=== PATIENT | female | born 1945 | race Caucasian/White ===

== ENCOUNTER 2017-03-29 15:58 | Emergency (ER) | payer MEDICARE, OTHER ==
[~2017-03-29] VITALS: Ht 167.6 cm; Wt 107.4 kg
[~2017-03-29 15:58] MED LIST: MEDDOSEPAK OR; PERCOCET 5/325M1 TAB PO; SILVADENE1 % EX
[2017-03-29] MEDS ORDERED: NAPROSYN500 MG PO (18:07)
[2017-03-29 18:10] VITALS: BP 139/74
== END 2017-03-29 18:10 | disposition home or self-care (01) ==
LOC: ED 15:58
DX: M79.604 Pain in right leg (principal); M79.651 Pain in right thigh; M54.5 Low back pain

== ENCOUNTER 2018-05-04 12:54 | Emergency (ER) | payer MEDICARE, OTHER ==
[~2018-05-04] VITALS: Ht 167.6 cm; Wt 100.0 kg
[~2018-05-04 12:54] MED LIST changes: +NAPROSYN500 MG PO
[2018-05-04] MEDS ORDERED: ACYCLOVIR400 MG PO (14:07)
[2018-05-04] MEDS ORDERED: TRAMADOL HYDROC50 MG PO (14:07)
[2018-05-04 14:21] VITALS: BP 158/89
== END 2018-05-04 14:33 | disposition home or self-care (01) ==
LOC: ED 12:54
DX: B02.9 Zoster without complications (principal); R10.32 Left lower quadrant pain; L29.9 Pruritus, unspecified

== ENCOUNTER → 2018-05-15 | Outpatient (REF) | payer MEDICARE, OTHER ==
[~2018-05-15] MED LIST changes: +ACYCLOVIR400 MG PO; +TRAMADOL HYDROC50 MG PO
[2018-05-15 10:47] LABS: HEMATOCRIT 46.4 % (37.0-47.0); HEMOGLOBIN 14.9 g/dl (12.0-16.0); MEAN CELL VOLUME 91.7 fL CALC (80.0-100.0); MEAN CORPUSCULAR HGB 29.4 pG CALC (26.0-32.0); MEAN CORPUSCULAR HGB CONC 32.1 g/L CALC (32.0-36.0); RED BLOOD COUNT 5.06 mill/uL (4.20-5.60); RED CELL DISTRI WIDTH 14.3 % (11.5-15.5)
[2018-05-15 10:55] LABS: BILIRUBIN, TOTAL 0.4 mg/dL (0.0-1.4); CREATININE 1.1 mg/dL (0.5-1.0); POTASSIUM 4.3 mmol/l (3.5-5.1); TOTAL PROTEIN 6.6 g/dL (6.3-8.2)
== END | disposition home or self-care (01) ==
LOC: LAB 10:00
PROVIDERS: ATTEND Internal Medicine
DX: B02.9 Zoster without complications (principal)

== ENCOUNTER → 2018-06-03 | Outpatient (REF) | payer MEDICARE, OTHER ==
[2018-06-03 14:26] LABS: CREATININE 1.1 mg/dL (0.5-1.0); POTASSIUM 4.5 mmol/l (3.5-5.1)
== END | disposition home or self-care (01) ==
LOC: LAB 10:08
PROVIDERS: ATTEND Nurse Practitioner
DX: R94.4 Abnormal results of kidney function studies (principal)

== ENCOUNTER 2019-05-17 | Emergency (ER) | payer MEDICARE, OTHER ==
[2019-05-17 19:45] LABS: HEMATOCRIT 43.5 % (37.0-47.0); HEMOGLOBIN 13.8 g/dl (12.0-16.0); IMMATURE GRANULOCYTES 0.7 % (0.0-5.0); MEAN CELL VOLUME 89.9 fL CALC (80.0-100.0); MEAN CORPUSCULAR HGB 28.5 pG CALC (26.0-32.0); MEAN CORPUSCULAR HGB CONC 31.7 g/L CALC (32.0-36.0); NEUT# 5.7 thou/uL (2.00-7.15); RED BLOOD COUNT 4.84 mill/uL (4.20-5.60)
[2019-05-17 20:00] LABS: ALBUMIN 3.6 g/dL (3.2-5.0); ALKALINE PHOSPHATASE 170 u/l (38-126); ANION GAP 14 (6-22 (CALC)); BILIRUBIN, TOTAL 0.4 mg/dL (0.0-1.4); BUN 21 mg/dL (8-23); BUN/CREATININE RATIO 25 (12-20 (CALC)); CARBON DIOXIDE 22 mmol/l (22-30); CHLORIDE 109 mmol/l (95-108); CREATININE 0.8 mg/dL (0.5-1.0); GFR > 60 ML/MIN (>=60 (CALC)); GFR FOR AFR.AMER. > 60 ML/MIN (>=60 (CALC)); MAGNESIUM 1.9 mg/dL (1.6-2.3); POTASSIUM 4.5 mmol/l (3.5-5.1); SGOT/AST 45 u/l (9-36); SODIUM 140 mmol/l (137-146); TOTAL PROTEIN 6.4 g/dL (6.3-8.2)
[2019-05-17 20:08] LABS: D-DIMER 0.36 mg/L (0.19-0.60); INTERNATIONAL NORMALIZED RATIO 0.9 RATIO (0.7-1.3); PROTHROMBIN TIME 9.9 SECONDS (9.0-12.5)
[2019-05-17 20:12] LABS: MYOGLOBIN 44 ng/mL (0 - 62)
[2019-05-17 20:30] LABS: TSH, 3RD GENERATION 2.13 uIU/mL (0.47 - 4.68)
[2019-05-17] MEDS ORDERED: BUSPAR5 MG PO (21:29)
== END 2019-05-17 21:45 | disposition home or self-care (01) ==
PROVIDERS: Family Medicine
DX: R06.02 Shortness of breath (principal); F41.9 Anxiety disorder, unspecified; R07.9 Chest pain, unspecified
CPT/HCPCS: J2060

== ENCOUNTER 2022-03-19 10:08 | Emergency (ER) | payer MEDICARE, OTHER ==
[~2022-03-19] VITALS: Ht 167.6 cm; Wt 111.0 kg
[~2022-03-19 10:08] MED LIST changes: +BUSPAR5 MG PO
[2022-03-19 10:26] VITALS: BP 161/93
[2022-03-19 10:56] LABS: HEMATOCRIT 45.7 % (37.0-47.0); HEMOGLOBIN 14.5 g/dl (12.0-16.0); IMMATURE GRANULOCYTES 0.5 % (0.0-5.0); MEAN CELL VOLUME 93.1 fL CALC (80.0-100.0); MEAN CORPUSCULAR HGB 29.5 pG CALC (26.0-32.0); MEAN CORPUSCULAR HGB CONC 31.7 g/dL CAL (32.0-36.0); NEUT# 3.4 thou/uL (2.00-7.15); RED BLOOD COUNT 4.91 mill/uL (4.20-5.60)
[2022-03-19 11:11] LABS: ALBUMIN 3.7 g/dL (3.2-5.0); ALKALINE PHOSPHATASE 168 u/l (38-126); ANION GAP 9 (6-22 (CALC)); BILIRUBIN, TOTAL 0.6 mg/dL (0.0-1.4); BUN 15 mg/dL (8-23); BUN/CREATININE RATIO 17 (12-20 (CALC)); CARBON DIOXIDE 26 mmol/l (22-30); CHLORIDE 109 mmol/l (95-108); CREATININE 0.9 mg/dL (0.5-1.0); GFR FOR AFR.AMER. > 60 ML/MIN (>=60 (CALC)); GFR OTHER RACES > 60 ML/MIN (>=60 (CALC)); POTASSIUM 4.4 mmol/l (3.5-5.1); SGOT/AST 56 u/l (9-36); SODIUM 140 mmol/l (137-146); TOTAL PROTEIN 6.2 g/dL (6.3-8.2)
[2022-03-19] MEDS ORDERED: GENTAMICIN SULF5 ML OD (13:15)
[2022-03-19] MEDS ORDERED: ULTRAM50 MG PO (13:15)
== END 2022-03-19 14:21 | disposition home or self-care (01) ==
LOC: ED 10:08
PROVIDERS: Emergency Medicine
DX: H57.11 Ocular pain, right eye (principal); R22.0 Localized swelling, mass and lump, head

== ENCOUNTER 2023-09-16 11:52 | Observation (INO) | payer MEDICARE, OTHER ==
[2023-09-16] VITALS (20 sets, daily range): BP systolic 120–159; BP diastolic 66–116
[~2023-09-16] VITALS: Ht 167.6 cm; Wt 111.2 kg
[~2023-09-16 11:52] MED LIST changes: +GENTAMICIN SULF5 ML OD; +ULTRAM50 MG PO
[2023-09-16] MEDS ORDERED: IPRATROPIUM-Albuterol 0.5MG-2.5MG/3 ML NEB ONE ×2 (12:05→13:40)
[2023-09-16] MEDS ORDERED: methylPREDNISolone SODIUM SUCC 125 MG/2 ML SDV IV ONE (12:05)
[2023-09-16 12:26] LABS: BASO% 0.6 % (0-3); EOS% 4.9 % (0-8); HEMATOCRIT 45.4 % (37.0-47.0); HEMOGLOBIN 14.6 g/dl (12.0-16.0); IMMATURE GRANULOCYTES 0.2 % (0.0-5.0); LYMPH% 28.8 % (15-41); MEAN CELL VOLUME 92.3 fL CALC (80.0-100.0); MEAN CORPUSCULAR HGB 29.7 pG CALC (26.0-32.0); MEAN CORPUSCULAR HGB CONC 32.2 g/dL CAL (32.0-36.0); MONO% 8.6 % (2-13); NEUT# 3.58 thou/uL (2.00-7.15); NEUT% 56.9 % (42-76); RED BLOOD COUNT 4.92 mill/uL (4.20-5.60)
[2023-09-16 12:40] LABS: ALKALINE PHOSPHATASE 135 u/l (38-126); ANION GAP 9 (6-22 (CALC)); BILIRUBIN, TOTAL 0.6 mg/dL (0.02-1.3); BUN 14 mg/dL (8-23); BUN/CREATININE RATIO 15 (12-20 (CALC)); CARBON DIOXIDE 21 mmol/l (22-30); CHLORIDE 116 mmol/l (95-108); CREATININE 0.9 mg/dL (0.5-1.0); ESTIMATED GFR 65 ML/MIN (>=90 (CALC)); POTASSIUM 4.1 mmol/l (3.5-5.1); SGOT/AST 68 u/l (9-36); SODIUM 141 mmol/l (137-146); TOTAL PROTEIN 7.1 g/dL (6.3-8.2)
[2023-09-16] MEDS ORDERED: AZITHROMYCIN 500 MG in SODIUM CHLORIDE 0.9% 250 ML IV ONE (13:40)
[2023-09-16] MEDS ORDERED: MAGNESIUM HYDROXIDE 30 ML UDC PO PRN (14:05)
[2023-09-16] MEDS ORDERED: IPRATROPIUM-Albuterol 0.5MG-2.5MG/3 ML NEB PRN (14:05)
[2023-09-16] MEDS ORDERED: ACETAMINOPHEN 325 MG/TAB PO PRN (14:05)
--- NOTE | 2023-09-16 15:10 | NUR ---
report attempted. rn unavaliable at this time
--- NOTE | 2023-09-16 15:47 | NUR ---
pt to room 261. on tele box 11
--- NOTE | 2023-09-16 15:47 | NUR ---
report called to shavonne urbina
--- NOTE | 2023-09-16 16:29 | NUR ---
REPORT RECEIVED FROM MARIE IN ED, PT ARRIVED ON UNIT @ 1600 TRANSPORTED VIA W/C TO UNIT. ALERT AND ORIENTED X 4, DENIES PAIN AT THIS TIME BUT REPORTS SHE DOES HAVE CHEST PAIN WITH EXCESSIVE COUGHING, SHE DOES C/O COUGHING UP YELLOW SPUTUM AND HAS HAD THIS CONDITION FOR THE PAST 11 DAYS NOW.TELE # [address], # [address] [facility]. ORIENTED TO ROOM AND CALL UMAÑA, SITTING UP IN RECLINER AT THIS TIME, CALL UMAÑA IN REACH.
[2023-09-16] MEDS ORDERED: VITAMIN D350000 UNIT PO (18:33)
[2023-09-16] MEDS ORDERED: B121000 MC1 SC (18:39)
--- NOTE | 2023-09-16 18:41 | NUR ---
PT IS REQUESTING TO HAVE MIRALAX WITH BREAKFAST DAILY SHE PUTS IT IN HER COFFEE TO PREVENT CONSTIPATION, WILL PASS ON TO RESIDENTIAL GAS HEAT TECHNICIAN RN
[2023-09-16] MEDS ORDERED: ENOXAPARIN SODIUM 40 MG/0.4 ML SYR SC SCH (21:00)
[2023-09-16] MEDS ORDERED: methylPREDNISolone Sod Succ 40 MG/ML SDV IV SCH (22:00)
[2023-09-17] VITALS (7 sets, daily range): BP systolic 127–138; BP diastolic 55–72
[2023-09-17 04:57] LABS: BASO% 0.1 % (0-3); HEMATOCRIT 44.7 % (37.0-47.0); HEMOGLOBIN 14.3 g/dl (12.0-16.0); IMMATURE GRANULOCYTES 0.4 % (0.0-5.0); LYMPH% 8.9 % (15-41); MEAN CELL VOLUME 92.7 fL CALC (80.0-100.0); MEAN CORPUSCULAR HGB 29.7 pG CALC (26.0-32.0); MONO% 1.2 % (2-13); NEUT# 9.08 thou/uL (2.00-7.15); NEUT% 89.4 % (42-76); RED BLOOD COUNT 4.82 mill/uL (4.20-5.60); RED CELL DISTRI WIDTH 13.6 % (11.5-15.5)
[2023-09-17 05:06] LABS: ALBUMIN 3.7 g/dL (3.2-5.0); BILIRUBIN, TOTAL 0.4 mg/dL (0.02-1.3); MAGNESIUM 1.8 mg/dL (1.6-2.3); POTASSIUM 4.4 mmol/l (3.5-5.1); TOTAL PROTEIN 6.4 g/dL (6.3-8.2)
--- NOTE | 2023-09-17 08:00 | NUR ---
PT IN BED WITH HOB UP, PT IS ALERT AND OREINTED X 3. PT HAS NO C/O PAIN AT THIS TIME. PT HAS TELE ON WITH ALL LEADS ATTACHED. PT ON RA O2 SATS @ 96%. PT LUNGS TIGHT WITH WHEEZING THROUGOUT. PT AMBULATES WELL TO BATHROOM FOR ALL TOILETING NEEDS. PT HAS CALL LIGHT WITHIN REACH AND SAFETY MEASURE IN PLACE AT THIS TIME.
--- NOTE | 2023-09-17 11:03 | NUR ---
pt called medical care evaluation specialist light stated they told her to get up and walk down the hallway. pt tolerated walk very well with walker. did have multiple coughing fits in hallway. stopped snf down hallway to take a breath. pt alittle dizzy while walking. pt stopped and sat on her personal rollator walker. pt asked for breathing treatment when arriving back in room. hand sign writer told pt that she will walk her again this afternoon or evening if she felt up to it.
[2023-09-17] MEDS ORDERED: ALPRAZolam 0.25 MG PO PRN (11:30)
--- NOTE | 2023-09-17 11:30 | NUR ---
PT C/O FEELINGS OF ANXIETY. PT HEART RATE IS 103 AFTER BREATHING TREATMENT. PT IS ANXIOUS AND UPSET, PROVIDER ORDERED VALUIM X 1 DOSE TO BE GIVEN. PT HAS CALL LIGHT WITHIN REACH AND SAFETY MEASURES IN PLACE.
[2023-09-17] MEDS ORDERED: LEVALBUTEROL HCL 1.25 MG/3 ML VIAL NEB PRN (11:55)
[2023-09-17] MEDS ORDERED: LORazepam 2 MG/ML IV SCH ×2 (12:00→19:25)
--- NOTE | 2023-09-17 12:00 | NUR ---
PT IS IN BED WITH HOB UP, FEELING LESS ANXIOUS AFTER MEDICATION. PT IS EATING SMALL AMOUNT OF LUNCH. FAMILY MEMBER IN RM. PT HAS CALL LIGHT WIHTIN REACH AND SAFETY MEASURES IN PLACE AT THIS TIME.
[2023-09-17] MEDS ORDERED: MONTELUKAST SODIUM 10 MG/TAB PO SCH (13:00)
[2023-09-17] MEDS ORDERED: AZITHROMYCIN 500 MG in SODIUM CHLORIDE 0.9% 250 ML IV SCH (15:00)
[2023-09-17] MEDS ORDERED: DiphenhydrAMINE HCL 50 MG/ML SDV IV ONE (16:00)
[2023-09-17] MEDS ORDERED: DiphenhydrAMINE HCL 50 MG/ML SDV IV PRN (16:00)
--- NOTE | 2023-09-17 16:00 | NUR ---
IV AZITHROMYCIN INFUSING, IV SITE IS RED AND ITCHING AT SITE. IV STOPPED, NOTIFIED. NEW ORDERS RECIEVED AND AZITHROMYCIN D/C'D. PT HAS CALL LIGHT WITHIN REACH AND SAFETY MEASURES IN PLACE AT THIS TIME.
[2023-09-17] MEDS ORDERED: DOXYCYCLINE HYCLATE 100 MG/CAP PO SCH (18:00)
[2023-09-17] MEDS ORDERED: methylPREDNISolone Sod Succ 40 MG/ML SDV IV SCH (18:00)
[2023-09-17] MEDS ORDERED: LORazepam 2 MG/ML IV PRN (19:20)
--- NOTE | 2023-09-17 20:00 | NUR ---
PATIENT RESTING IN BED WITH EYES CLOSED. AROUSABLE-PATIENT WAS MEDICATED ON DAYSHIFT WITH ATIVAN IVP FOR ANXIETY. PATIENT IS DROWSY BUT ORIENTED TO PERSON AND PLACE. WANTS TO KNOW IF SHE IS GOING HOME TODAY. REORIENTED TO TIME AND SITUATION EASILY. TELE MONITOR IN PLACE AND READING SR-80'S. O2 SAT IS 94% ON RA. PATIENT WITH NON-PRODUCTIVE COUGH. LUNGS ARE DIMINISHED BUT CLEAR. IV SITE TO LEFT FOREARM INTACT. MIN ASSIST TO THE BR TO VOID KE URINE AND THEN BACK TO BED-SLIGHTLY UNSTEADY ON HER FEET. SAFETY PRECAUTIONS REINFORCED. CALL LIGHT IN REACH. WILL CONT TO MONITOR.
[2023-09-17] MEDS ORDERED: IPRATROPIUM BROMIDE 0.5 MG/2.5 ML SOL IN SCH (23:00)
[2023-09-18] VITALS: BP 132/71
--- NOTE | 2023-09-18 | NUR ---
PATIENT RESTING IN BED AT THIS TIME WITH EYES CLOSED. RESPS ARE EVEN AND UNLABORED. TELE MONITOR IN PLACE WITH LAST READING SR-81. SALINE LOCK TO LEFT FOREARM INTACT. CALL LIGHT IN REACH. WILL CONT TO MONITOR.
[2023-09-18 00:16] VITALS: BP 132/71
--- NOTE | 2023-09-18 04:00 | NUR ---
PATIENT RESTING IN BED WITH EYES CLOSED. RESPS ARE EVEN AND UNLABORED. NO COUGH AT THIS TIME. TELE MONITOR IN PLACE. SALINE LOCK TO LEFT FOREARM INTACT. CALL LIGHT IN REACH. WILL CONT TO MONITOR.
[2023-09-18 04:02] VITALS: BP 133/64
[2023-09-18 05:00] VITALS: BP 133/64
[2023-09-18 05:32] LABS: BASO% 0.1 % (0-3); HEMATOCRIT 42.7 % (37.0-47.0); HEMOGLOBIN 13.8 g/dl (12.0-16.0); IMMATURE GRANULOCYTES 0.5 % (0.0-5.0); LYMPH% 6.5 % (15-41); MEAN CORPUSCULAR HGB 30.1 pG CALC (26.0-32.0); MEAN CORPUSCULAR HGB CONC 32.3 g/dL CAL (32.0-36.0); MONO% 4.4 % (2-13); NEUT# 11.21 thou/uL (2.00-7.15); NEUT% 88.5 % (42-76); RED BLOOD COUNT 4.59 mill/uL (4.20-5.60); RED CELL DISTRI WIDTH 14.1 % (11.5-15.5)
[2023-09-18 05:44] LABS: ALBUMIN 3.6 g/dL (3.2-5.0); BILIRUBIN, TOTAL 0.3 mg/dL (0.02-1.3); MAGNESIUM 1.9 mg/dL (1.6-2.3); POTASSIUM 5.1 mmol/l (3.5-5.1); TOTAL PROTEIN 6.1 g/dL (6.3-8.2)
[2023-09-18 07:21] VITALS: BP 143/79
--- NOTE | 2023-09-18 08:00 | NUR ---
PT IN BED WITH HOB UP EATING BREAKFAST. PT IS ALERT AND ORINTED X 3. PT HAS NO C/O PAIN AT THIS TIME. PT HAS TELE ON WITH ALL LEADS ATTACHED, IV SITE TO LFA CLEAN AND INTACT,SL. PT AMBULATES WELL TO BATHROOM FOR TOILETING NEEDS. PT HAS NO C/O PAIN AT THIS TIME.
[2023-09-18 10:21] VITALS: BP 132/72
[2023-09-18] MEDS ORDERED: CETIRIZINE10 MG PO (11:57)
[2023-09-18] MEDS ORDERED: SINGULAIR10 MG PO (11:58)
[2023-09-18] MEDS ORDERED: DOXYCYCLINE HY100 MG PO (11:58)
[2023-09-18] MEDS ORDERED: SYMBICORT 80-4.5MCG IN (12:00)
[2023-09-18] MEDS ORDERED: BENZONATATE200 MG PO (12:02)
[2023-09-18] MEDS ORDERED: PREDNISONE10 MG PO (12:04)
--- NOTE | 2023-09-18 12:29 | NUR ---
PT SITTING UP IN BED WITH FAMILY AT BEDSIDE. PT HAS NO C/O PAIN AT THIS TIME. PT HAS CALL LIGHT WITHIN REACH AND SAFETY MEASURES IN PLACE AT THIS TIME.
--- NOTE | 2023-09-18 14:17 | NUR ---
Discharge instructions given. Patient verbalizes understanding of same. Discharged in stable condition via Wheelchair to Home with family. All belongings sent with pt.
--- NOTE | 2023-09-19 08:28 | NUR ---
Due to final sputum culture results, pt needs change in antibiotics. Attempted to contact pt however no answer, left voicemail message.
[2023-09-19] MEDS ORDERED: ADVAIR DISK1 IN (10:59)
[2023-09-19] MEDS ORDERED: OMNICEF300 MG PO (10:59)
--- NOTE | 2023-09-19 14:16 | NUR ---
Patient advised to stop doxycycline and start new rx for cefdinir 600 mg po daily x 5 days. Pt also states Symbicort is not covered by her insurance. Called in new rx per Ann Marie Madrid APRN for Advair Diskus 250/50 mcg 1 puff po bid x 1 inhaler. Pt stated understanding of new prescriptions. All questions and concerns answered.
== END 2023-09-18 14:09 | disposition home or self-care (01) ==
LOC: ED 11:52 → ED-I 13:30 → ED 13:45 → MS2 13:46
PROVIDERS: Family Medicine; Nurse Practitioner Family; ADMIT Internal Medicine; ATTEND Internal Medicine
DX: J20.9 Acute bronchitis, unspecified (principal); J30.2 Other seasonal allergic rhinitis; R73.03 Prediabetes; E53.8 Deficiency of other specified B group vitamins; Z20.822 Contact with and (suspected) exposure to COVID-19
CPT/HCPCS: J1650; J2060